=== PATIENT | male | born 1975 | race Caucasian/White ===

== ENCOUNTER 2018-08-15 18:59 | Emergency (ER) | payer SELFPAY ==
[~2018-08-15] VITALS: Ht 170.2 cm; Wt 81.6 kg
[2018-08-15 19:02] VITALS: BP 125/80
[2018-08-15 19:39] VITALS: BP 133/83
== END 2018-08-15 19:39 ==
LOC: MED 18:59 → EDSEX 18:59 → MED 19:39
DX: M25.512 Pain in left shoulder (principal); M25.511 Pain in right shoulder; V89.2XXA Person injured in unspecified motor-vehicle accident, traffic, initial encounter; Y93.89 Activity, other specified; Y92.89 Other specified places as the place of occurrence of the external cause; Y99.8 Other external cause status
CPT/HCPCS: 99283